=== PATIENT | female | born 1980 | race African-American/Black ===

== ENCOUNTER 2021-04-15 14:19 | Emergency (ER) | payer OTHER ==
[~2021-04-15] VITALS: Ht 167.6 cm; Wt 127.0 kg
[2021-04-15] MEDS ORDERED: KETOROLAC 30MG/ML VIAL IM ONE (15:15)
[2021-04-15 15:48] VITALS: BP 144/84
[2021-04-15] MEDS ORDERED: NAPR-681 MT (16:38)
== END 2021-04-15 16:52 | disposition home or self-care (01) ==
LOC: ER 14:34
DX: M25.562 Pain in left knee (principal)
CPT/HCPCS: 73562; 96372; 99283; J1885